=== PATIENT | male | born 1995 | race Hispanic/Latino ===

== ENCOUNTER 2025-05-12 18:56 | Emergency (ER) | payer OTHER ==
[~2025-05-12 18:56] MED LIST: Iopamidol-370 76% 500 ML MDV (1 ML CHARGE) ONE
[2025-05-12] MEDS ORDERED: Ondansetron PF 4 MG/2 ML Vial ONE (19:45)
[2025-05-12 19:46] LABS: #Basophils 0.03 10x3/uL (0.0-0.2); #Eosinophils 0.07 10x3/uL (0.0-0.7); #Monocytes 0.51 10x3/uL (0.11-0.59); #Neutrophils 5.18 10x3/uL (1.40-6.50); %Basophils 0.4 % (0.0-1.0); %Eosinophils 1.0 % (0.0-10.0); %Lymphocytes 16.6 % (21.0-51.0); %Monocytes 7.2 % (0.0-10.0); %Neutrophils 73.7 % (42.0-75.0); Hematocrit 20.8 % (42.0-52.0); Hemoglobin 5.2 g/dL (14.0-18.0); Mean Corpuscular Hemoglobin 17.0 pg (27.0-31.0); Mean Corpuscular Volume 68.2 fL (78.0-98.0); Platelet Count 50 10x3/uL (130-400); Red Blood Cell (RBC) Count 3.05 mill/uL (4.70-6.10); White Blood Cell (WBC) Count 7.04 10x3/uL (4.8-10.8)
[2025-05-12 19:54] LABS: ALT (SGPT) 15 U/L (Less than 45); AST (SGOT) 35 U/L (11-34); Albumin 2.9 g/dL (3.1-4.5); Alkaline Phosphatase 109 U/L (40-110); Anion Gap 12 mmol/L (10-20); BUN (Urea Nitrogen) 12 mg/dL (8.9-20.6); Bilirubin, Total 1.4 mg/dL (0.3-1.2); Calc. Creatinine Clearance 0 mL/min (70-130); Calcium 8.0 mg/dL (7.8-10.44); Carbon Dioxide 21 mmol/L (22-29); Chloride 108 mmol/L (98-107); Globulin 3.7 g/dL (2.4-3.5); Glucose 141 mg/dL (70-105); Lipase 28 U/L (8-78); Magnesium 1.5 mg/dL (1.6-2.6); Potassium 3.6 mmol/L (3.5-5.1); Sodium 137 mmol/L (136-145)
[2025-05-12 20:08] LABS: INR-International Normal Ratio 1.4; PTT 34.4 sec (22.9-36.1); Prothrombin Time 16.8 sec (12.0-14.7)
[2025-05-12 20:11] LABS: Anisocytosis SLIGHT = 6-15 cells HPF (0-5); Basophilic Stippling SLIGHT = 1-2 cells HPF (None Seen); Macrocytosis SLIGHT = 6-15 cells HPF (0-5); Microcytosis SLIGHT = 6-15 cells HPF (0-5); Ovalocytes SLIGHT = 2-5 cells HPF (0-1); Platelet Adequacy Comment Platelets Decreased; Polychromasia SLIGHT = 2-3 cells HPF (0-2)
[2025-05-12] MEDS ORDERED: Octreotide Acetate 1,250 MCG in Sodium Chloride 0.9% 250 ML 250 ML IVPB SCH (20:45)
[2025-05-12 21:08] LABS: Bacteria/HPF None Seen HPF (None Seen); CAUTI Indications for Culture Dysuria,urgency,freq; Glucose, Urine (Dipstick) Normal (Negative); Leukocyte Negative Leu/uL (Negative); Protein, Urine (Dipstick) 10 mg/dL (Neg-Trace); RBC/HPF 0-3 HPF (0-3); Specific Gravity, Urine 1.033 (1.002-1.036); WBC/HPF 0-3 HPF (0-3)
[2025-05-12 21:09] LABS: Urine Culture Reflex No No
[2025-05-12] MEDS ORDERED: cefTRIAXone (ROCEPHIN) 2 GM VIAL ONE (21:48)
[2025-05-13 03:18] LABS: #Basophils Less than 0.03 10x3/uL (0.0-0.2); #Eosinophils Less than 0.03 10x3/uL (0.0-0.7); #Monocytes 0.60 10x3/uL (0.11-0.59); #Neutrophils 7.22 10x3/uL (1.40-6.50); %Basophils 0.2 % (0.0-1.0); %Eosinophils 0.2 % (0.0-10.0); %Lymphocytes 8.5 % (21.0-51.0); %Monocytes 6.9 % (0.0-10.0); %Neutrophils 83.3 % (42.0-75.0); Hematocrit 20.7 % (42.0-52.0); Hemoglobin 5.6 g/dL (14.0-18.0); Mean Corpuscular Hemoglobin 19.7 pg (27.0-31.0); Mean Corpuscular Volume 72.9 fL (78.0-98.0); Platelet Count 45 10x3/uL (130-400); Red Blood Cell (RBC) Count 2.84 mill/uL (4.70-6.10); White Blood Cell (WBC) Count 8.68 10x3/uL (4.8-10.8)
[2025-05-13] MEDS ORDERED: Ondansetron PF 4 MG/2 ML Vial ONE ×2 (03:43→03:54)
== END 2025-05-13 04:38 | disposition short-term general hospital (02) ==
LOC: ERS 18:56
DX: K92.0 Hematemesis (principal); D64.9 Anemia, unspecified; K76.6 Portal hypertension; E87.20 Acidosis, unspecified; Z79.899 Other long term (current) drug therapy
CPT/HCPCS: 36415; 36430; 74177; 80053; 81001; 83605; 83690; 83735; 84484; 85025; 85610; 85730; 86850; 86900; 86901; 93005; 96361; 96365; 96366; 96368; 96375; 96376; J0696; J2354; J2405; J2550; J7050; P9016; Q9967